=== PATIENT | female | born 1970 | race Caucasian/White ===

== ENCOUNTER 2016-05-24 16:29 | Emergency (ER) | payer OTHER ==
[~2016-05-24] VITALS: Ht 160 cm; Wt 59.1 kg
[2016-05-24 16:30] VITALS: BP 110/71; PULSE 74; RESP 20; O2SAT 95
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
[2016-05-24 16:58] VITALS: BP 114/75; PULSE 69; RESP 18; O2SAT 95
[2016-05-24] MEDS ORDERED: Lidocaine 2% 5 mL Urojet Topical Jelly Syringe TOPICAL ONE (17:05)
[2016-05-24] MEDS ORDERED: Lidocaine 2% 5 mL Topical Jelly TOPICAL ONE (17:40)
[2016-05-24 17:53] VITALS: PULSE 76; RESP 16; O2SAT 96
== END 2016-05-24 17:53 | disposition home or self-care (01) ==
LOC: SED 16:29
DX: T23.231A Burn of second degree of multiple right fingers (nail), not including thumb, initial encounter (principal); T31.0 Burns involving less than 10% of body surface; X13.1XXA Other contact with steam and other hot vapors, initial encounter; Y93.G3 Activity, cooking and baking; Y99.8 Other external cause status; Y92.010 Kitchen of single-family (private) house as the place of occurrence of the external cause; F17.290 Nicotine dependence, other tobacco product, uncomplicated; J45.909 Unspecified asthma, uncomplicated